=== PATIENT | female | born 1975 | race Caucasian/White ===

== ENCOUNTER 2019-11-04 04:19 | Emergency (ER) | payer OTHER ==
[~2019-11-04] VITALS: Ht 154.9 cm; Wt 52.2 kg
[~2019-11-04 04:19] MED LIST: OSEL75CA PO; PEPCID40 MG PO; PHENERGAN25 MG PO; PROTONIX20 MG PO
== END 2019-11-04 11:37 | disposition home or self-care (01) ==
LOC: ER 04:19
DX: K52.9 Noninfective gastroenteritis and colitis, unspecified (principal)